=== PATIENT | female | born 2000 | race Caucasian/White ===

== ENCOUNTER 2024-04-14 10:12 | Outpatient (CLI) | payer BC | END 2024-04-14 10:13 | disposition home or self-care (01) | LOC: SCSRAD 10:12 | DX: S39.92XA Unspecified injury of lower back, initial encounter (principal); M43.8X4 Other specified deforming dorsopathies, thoracic region; M51.34 Other intervertebral disc degeneration, thoracic region | CPT/HCPCS: 72072; 72100 ==